=== PATIENT | female | born 1945 | race Caucasian/White ===

== ENCOUNTER 2020-09-27 08:06 | Day surgery (SDC) | payer OTHER, MEDICARE ==
[2020-09-23 13:39] VITALS: BMI 26.9
[2020-09-27] MEDS ORDERED: PROPOFOL 20 ML ONE ×4 (09:36)
[2020-09-27] MEDS ORDERED: LIDOCAINE HCL/PF 2% SDV 5ML VIAL ONE (09:36)
[2020-09-27 10:16] VITALS: PULSE 62; TEMP 96.9
[2020-09-27 10:43] VITALS: BP 106/70
== END 2020-09-27 10:43 | disposition home or self-care (01) ==
LOC: FASU-ENDO 08:06
PROVIDERS: ATTEND Internal Medicine Gastroenterology
PROC: 0DBP8ZX Excision of Rectum, Via Natural or Artificial Opening Endoscopic, Diagnostic (ICD-10-PCS; 2020-09-27)
PROC: 0DBP8ZX Excision of Rectum, Via Natural or Artificial Opening Endoscopic, Diagnostic (ICD-10-PCS; principal; 2020-09-27 09:39)
DX: K57.30 Diverticulosis of large intestine without perforation or abscess without bleeding (principal); K62.1 Rectal polyp; R19.5 Other fecal abnormalities
CPT/HCPCS: 88305-TC

== ENCOUNTER 2022-05-07 07:24 | Emergency (ER) | payer OTHER, MEDICARE ==
[2022-05-07 07:31] VITALS: BP 137/69; PULSE 80; RESP 20; TEMP 97.8; BMI 26.2
[2022-05-07] MEDS ORDERED: ACETAMINOPHEN 325 MG TABLET (FP) PO ONE (07:38)
[2022-05-07] MEDS ORDERED: CYCLOBENZAPRINE HCL 10 MG TABLET (FP) PO ONE (07:38)
[2022-05-07] MEDS ORDERED: CYCLOBENZAPRINE HCL 5 MG TABLET ONE (07:41)
[2022-05-07] MEDS ORDERED: ACETAMINOPHEN 325 MG TABLET (FP) ONE (07:41)
[2022-05-07 10:13] LABS: HEMATOCRIT 38.8 % (32.4-45.2); HEMOGLOBIN 13.1 G/dL (10.7-15.3); MCH 30.6 pg (25.7-33.7); MCHC 33.8 g/dl (32.0-36.0); MEAN CELL VOLUME 90.4 fl (80-96); MEAN PLT VOLUME 8.5 fl (7.5-11.1); PLATELET COUNT 212.7 10^3/uL (134-434); RBC 4.29 10^6/uL (3.60-5.2); RDW 13.4 % (11.6-15.6); WHITE BLOOD COUNT 8.2 10^3/uL (4.0-10.8)
[2022-05-07 10:22] LABS: INR 0.88 (0.83-1.09); PROTHROMBIN TIME (PATIENT) 10.1 SEC (9.7-13.0)
[2022-05-07 10:25] LABS: ACTIVATED PTT 26.5 SECONDS (25.2-36.5)
[2022-05-07 10:29] LABS: BILIRUBIN,TOTAL 1.1 mg/dl (0.2-1); CALCIUM 9.2 mg/dl (8.5-10); CREATININE 0.8 mg/dl (0.55-1.3)
[2022-05-07 10:42] LABS: PLATELET ESTIMATE ADEQUATE
== END 2022-05-07 13:39 | disposition home or self-care (01) ==
LOC: FER 07:24
DX: S22.41XA Multiple fractures of ribs, right side, initial encounter for closed fracture (principal); W01.190A Fall on same level from slipping, tripping and stumbling with subsequent striking against furniture, initial encounter; Y93.01 Activity, walking, marching and hiking
CPT/HCPCS: 36415; 71101-TC-RT-FY; 74177-TC; 80053; 85027; 85610; 85730; 86850; 86900; 86901; 93005; 99285-25; Q9967

== ENCOUNTER 2022-06-14 23:57 | Emergency (ER) | payer OTHER, MEDICARE ==
[2022-06-15 00:10] VITALS: BP 156/78; PULSE 78; RESP 18; TEMP 97.8; BMI 26.2
[2022-06-15] MEDS ORDERED: CLINDAMYCIN HCL 150 MG CAPSULE (FP) ONE (00:20)
[2022-06-15] MEDS ORDERED: CLINDAMYCIN HCL 300 MG CAPSULE PO ONE (00:20)
== END 2022-06-15 00:35 | disposition home or self-care (01) ==
LOC: FER 23:57
DX: R22.0 Localized swelling, mass and lump, head (principal); L03.211 Cellulitis of face
CPT/HCPCS: 99283-25

== ENCOUNTER 2022-07-02 05:23 | Emergency (ER) | payer OTHER, MEDICARE ==
[2022-07-02 05:31] VITALS: TEMP 98.2; BMI 26.2
[2022-07-02] MEDS ORDERED: diphenhydrAMINE HCL 25 MG CAPSULE (FP) PO ONE (05:31)
[2022-07-02] MEDS ORDERED: DEXAMETHASONE LIQUID 0.5 MG/5 ML PO ONE (05:31)
[2022-07-02] MEDS ORDERED: DEXAMETHASONE SOD PHOSPHATE/PF 10 MG/ML SDV ONE (05:33)
[2022-07-02] MEDS ORDERED: diphenhydrAMINE HCL 50 MG CAPSULE ONE ×2 (05:33→05:37)
[2022-07-02] MEDS ORDERED: VALSARTAN 40 MG TABLET PO ONE (06:05)
[2022-07-02] MEDS ORDERED: EPINEPHrine 1:1,000 1,000 MCG/ML ML SQ ONE (06:18)
[2022-07-02] MEDS ORDERED: EPINEPHrine/PF 1 MG/1 ML (1:1,000) AMPULE ONE (06:30)
[2022-07-02 08:47] LABS: ALBUMIN 3.7 g/dl (3.4-5.0); BILIRUBIN,TOTAL 0.8 mg/dl (0.2-1); CALCIUM 9.1 mg/dl (8.5-10); CREATININE 0.8 mg/dl (0.55-1.3); POTASSIUM 4.1 mmol/L (3.5-5.1); TOT PROT 6.7 g/dl (6.4-8.2)
[2022-07-02 08:51] LABS: HEMATOCRIT 40.5 % (32.4-45.2); HEMOGLOBIN 13.1 G/dL (10.7-15.3); MCH 29.6 pg (25.7-33.7); MCHC 32.3 g/dl (32.0-36.0); MEAN CELL VOLUME 91.6 fl (80-96); MEAN PLT VOLUME 10.3 fl (7.5-11.1); PLATELET COUNT 230.1 10^3/uL (134-434); RBC 4.42 10^6/uL (3.60-5.2); RDW 13.8 % (11.6-15.6); WHITE BLOOD COUNT 8.2 10^3/uL (4.0-10.8)
[2022-07-02 08:54] LABS: PLATELET ESTIMATE ADEQUATE
[2022-07-02 09:29] VITALS: BP 114/67; PULSE 88; RESP 18
== END 2022-07-02 09:53 | disposition home or self-care (01) ==
LOC: FER 05:23
DX: R22.0 Localized swelling, mass and lump, head (principal); T46.5X5A Adverse effect of other antihypertensive drugs, initial encounter
CPT/HCPCS: 36415; 80053; 84484; 85027; 93005; 99284-25